=== PATIENT | male | born 1995 | race Caucasian/White ===

== ENCOUNTER 2019-04-07 07:39 | Day surgery (SDC) | payer BC ==
[~2019-04-07] VITALS: Ht 175.3 cm; Wt 96.0 kg
[~2019-04-07 07:39] MED LIST: OXYMETAZOLINE NASAL SPRAY 0.05%, 15ML ONE
[2019-04-07 08:03] VITALS: BP 136/86
[2019-04-07] MEDS ORDERED: LACTATED RINGERS 1,000 ML IV SCH (08:13)
[2019-04-07] MEDS ORDERED: MIDAZOLAM 1 MG/ML, 2ML ONE (08:15)
[2019-04-07] MEDS ORDERED: FENTANYL PF 250 MCG/5ML ONE (08:15)
[2019-04-07] MEDS ORDERED: DEXT10TA7 PO (08:17)
[2019-04-07] MEDS ORDERED: OMEG1CAP23 PO (08:17)
[2019-04-07] MEDS ORDERED: ATOM100C PO (08:17)
[2019-04-07] MEDS ORDERED: SCOPOLAMINE PATCH, 1.5MG PATCH.TD72 TD ONE (08:44)
[2019-04-07] MEDS ORDERED: LIDOCAINE 1%-EPI 1:100K, 30ML INFIL ONE (09:21)
[2019-04-07] MEDS ORDERED: FLUORESCEIN SODIUM 500 MG/5 ML IV ONE (09:22)
[2019-04-07] MEDS ORDERED: EPINEPHRINE TOPICAL SOLN 1 MG/ML, 30ML TP ONE (09:22)
[2019-04-07] MEDS ORDERED: ACETAMINOPHEN 325 MG TABLET PO PRN (09:30)
[2019-04-07] MEDS ORDERED: DIAZEPAM 5 MG/ML, 2ML IVPush PRN (09:30)
[2019-04-07] MEDS ORDERED: FENTANYL PF 100 MCG/2ML IV PRN (09:30)
[2019-04-07] MEDS ORDERED: MEPERIDINE/PF 25MG/0.5ML IVPush PRN (09:30)
[2019-04-07] MEDS ORDERED: hydrALAzine 20 MG/ML, 1ML IV PRN (09:30)
[2019-04-07] MEDS ORDERED: KETOROLAC 30 MG/1 ML IV PRN (09:30)
[2019-04-07] MEDS ORDERED: HYDROmorphone 2 MG/ML, 1ML IVPush PRN (09:30)
[2019-04-07] MEDS ORDERED: ALBUTEROL SULFATE 2.5 MG/3 ML NPPB PRN (09:30)
[2019-04-07] MEDS ORDERED: OXYcodone 5 MG/5 ML ORAL.SOL UDC PO PRN (09:30)
[2019-04-07] MEDS ORDERED: PROMETHAZINE 25 MG/ML, 1ML IV PRN (09:30)
[2019-04-07] MEDS ORDERED: LABETALOL 5MG/ML, 20ML IV PRN (09:30)
[2019-04-07] MEDS ORDERED: NEOSTIGMINE 1 MG/ML, 10ML ONE (09:41)
[2019-04-07] MEDS ORDERED: GLYCOPYRROLATE 0.2MG/1ML, 5ML ONE (09:41)
[2019-04-07] MEDS ORDERED: CEFAZOLIN 1,000 MG ONE (09:41)
[2019-04-07] MEDS ORDERED: DEXAMETHASONE 4 MG/ML, 1ML ONE (09:41)
[2019-04-07] MEDS ORDERED: SUCCINYLCHOLINE 20 MG/ML, 10ML ONE (09:41)
[2019-04-07] MEDS ORDERED: PROPOFOL 10 MG/ML, 20ML ONE (09:41)
[2019-04-07] MEDS ORDERED: ROCURONIUM 10MG/ML,5ML ONE (09:41)
[2019-04-07] MEDS ORDERED: ONDANSETRON 2MG/ML, 2ML ONE (09:41)
[2019-04-07] MEDS ORDERED: BACITRACIN OINT 500U/GM, 15 GM TP ONE (09:51)
[2019-04-07] MEDS ORDERED: MEPERIDINE/PF 50 MG/ML ONE (09:56)
[2019-04-07] MEDS ORDERED: OXYcodone 5 MG/5 ML ORAL.SOL UDC ONE (10:26)
[2019-04-07] MEDS ORDERED: ACETAMINOPHEN 650 MG/20.3 ML UDC ONE (10:26)
[2019-04-07] MEDS ORDERED: NALOXONE 0.4 MG/ML, 1ML ONE (11:03)
== END 2019-04-07 11:55 | disposition home or self-care (01) ==
LOC: OUT 07:39
PROVIDERS: ATTEND Otolaryngology
DX: J34.2 Deviated nasal septum (principal); J34.3 Hypertrophy of nasal turbinates; J34.89 Other specified disorders of nose and nasal sinuses; Z79.899 Other long term (current) drug therapy; Z82.49 Family history of ischemic heart disease and other diseases of the circulatory system
CPT/HCPCS: 30520; 30801; J0330; J0690; J1100; J2175; J2250; J2310; J2405; J2704; J2710; J3010; J3490; J7120